=== PATIENT | male | born 1970 | race Caucasian/White ===

== ENCOUNTER 2021-10-11 07:19 | Outpatient (REF) | payer BC, SELFPAY ==
--- NOTE | ~2021-10-11 | XR_ITS ---
EXAMINATION: XR HAND, LEFT CLINICAL INFORMATION: Left hand pain COMPARISON: None TECHNIQUE: 3 views of the left hand FINDINGS: Normal mineralization. No periarticular osteopenia, erosions, or suspicious soft tissue calcifications. Normal alignment with no fracture. XR/XR hand wrist LT IMPRESSION: Normal left hand
[2021-10-11 11:42] LABS: Appearance Urine CLEAR; Color Urine YELLOW; Glucose Urine UA NEG (NEG); Leukocyte Esterase Urine NEG (NEG); Nitrite Urine NEG (NEG); PH 5.5 (5.0-8.0); Specific Gravity - Urine 1.025 (1.005-1.025); Urine Blood NEG (NEG); Urine Ketones NEG (NEG); Urine Protein NEG (NEG-TRACE)
[2021-10-11 11:47] LABS: Alanine Aminotransferase 19 U/L (0-40); Albumin Level 4.1 g/dL (3.5-5.0); Alkaline Phosphatase 53 U/L (39-117); Anion Gap 11 (12-20); Aspartate Amino Transferase 16 U/L (5-37); Bilirubin Total 0.6 mg/dL (0.0-1.0); Blood Urea Nitrogen 15 mg/dL (9-16); Calcium 8.8 mg/dL (8.4-10.2); Carbon Dioxide 24 mmol/L (22-29); Chloride 108 mmol/L (96-108); Cholesterol 215 mg/dL; Estimated Glomerular Filt Rate > 60; Glucose Fasting 90 mg/dL (60-99); HDL Cholesterol 62 mg/dL; LDL Cholesterol Calculated 129 mg/dl; Lipase 28 U/L (8-78); Potassium 4.2 mmol/L (3.3-5.1); Sodium 139 mmol/L (135-145); Total Protein 6.7 g/dL (6.5-8.0); Triglycerides 121 mg/dL
[2021-10-11 11:57] LABS: Prostate Specific Antigen Scr 0.78 ng/mL (<0.05-4.0); TSH reflex Free T4 1.36 uIU/mL (0.32-4.0)
== END 2021-10-11 07:20 | disposition home or self-care (01) ==
LOC: HO.HMGCLDS 07:19
PROVIDERS: PCP Nurse Practitioner Family; Visit Provider Nurse Practitioner Family
DX: Z00.00 Encounter for general adult medical examination without abnormal findings (principal); Z12.5 Encounter for screening for malignant neoplasm of prostate; R10.13 Epigastric pain; M79.642 Pain in left hand
CPT/HCPCS: 36415; 73110; 73130; 80053; 80061; 81003; 83690; 84153; 84443

== ENCOUNTER 2021-10-20 13:17 | Outpatient (REF) | payer BC, SELFPAY ==
--- NOTE | ~2021-10-20 | US_ITS ---
EXAMINATION: US ABDOMEN COMPLETE CLINICAL INFORMATION: Epigastric pain. COMPARISON: CT abdomen and pelvis 09/07/2016. TECHNIQUE: Real-time imaging of the abdominal viscera. FINDINGS: PANCREAS: Normal. ABDOMINAL AORTA: The proximal, mid, and distal segments are normal in caliber. INFERIOR VENA CAVA: Visualized portions are normal. LIVER: The liver is normal in size. The liver contour is normal. Liver echotexture is slightly increased. No focal hepatic lesion. There is no intrahepatic biliary duct dilatation seen. GALLBLADDER: Normal. The gallbladder is physiologically distended without evidence of stones, sludge, polyps, wall thickening or pericholecystic fluid. COMMON BILE DUCT: Normal in caliber measuring 0.4 cm in diameter. RIGHT KIDNEY: Normal. No hydronephrosis. No renal calculi or focal parenchymal lesions. The kidney measures 10.0 cm in maximum dimension. LEFT KIDNEY: Normal. No hydronephrosis. No renal calculi or focal parenchymal lesions. The kidney measures 10.2 cm in maximum dimension. SPLEEN: Normal. The spleen measures 10.4 cm in maximum dimension. FREE FLUID: None. US/US abdomen complete IMPRESSION: Slightly echogenic liver otherwise unremarkable exam
--- NOTE | ~2021-10-20 | US_ITS ---
EXAMINATION: ULTRASOUND EXTREMITY NONVASCULAR CLINICAL INFORMATION: Ganglion COMPARISON: None TECHNIQUE: Grayscale and color images of the soft tissues of the dorsal left wrist using a linear transducer FINDINGS: No cyst/ganglion is seen. No fluid collection or soft tissue mass is seen. US/US extremity nonvascular IMPRESSION: No abnormality seen by ultrasound.
== END 2021-10-20 13:18 | disposition home or self-care (01) ==
LOC: HO.HMGCX 13:17
PROVIDERS: PCP Nurse Practitioner Family; Visit Provider Nurse Practitioner Family
DX: R10.13 Epigastric pain (principal); M67.439 Ganglion, unspecified wrist
CPT/HCPCS: 76700; 76882

== ENCOUNTER 2022-04-12 08:45 | Outpatient (REF) | payer BC, SELFPAY ==
[2022-04-12 11:12] LABS: MANUAL DIFF FLAG NO
[2022-04-12 11:23] LABS: Appearance Urine CLEAR; Color Urine YELLOW; Glucose Urine UA NEG (NEG); Leukocyte Esterase Urine NEG (NEG); Nitrite Urine NEG (NEG); Urine Blood NEG (NEG); Urine Ketones 5 MG/DL (NEG); Urine Protein NEG (NEG-TRACE)
[2022-04-12 11:28] LABS: Basophils Percent Auto 0.6 % (0-2); Eosinophils Absolute Auto 0.1 X10*3/uL (0.0-0.4); Eosinophils Percent Auto 1.9 % (0-4); Hematocrit 43.8 % (42.0-52.0); Hemoglobin 14.5 g/dl (14.0-18.0); Imm Gran Abs Auto 0.01 X10*3/uL (0.00-0.03); Imm Gran Pct Auto 0.2 % (0.0-0.4); Lymphocytes Absolute Auto 1.7 X10*3/uL (1.2-4.9); Lymphocytes Percent Auto 36.6 % (20-40); Mean Corpuscular HGB Conc 33.1 g/dl (31.0-36.0); Mean Corpuscular Hemoglobin 31.4 pg (27.0-33.0); Mean Corpuscular Volume 94.8 fL (80.0-98.0); Mean Platelet Volume 10.5 fL (9.4-12.4); Monocytes Absolute Auto 0.4 X10*3/uL (0.1-1.2); Monocytes Percent Auto 8.2 % (2-11); Neutrophils Absolute Auto 2.5 x10*3/uL (2.0-8.3); Neutrophils Percent Auto 52.5 % (45-73); Platelet Count 283 X10*3/uL (160-400); Red Blood Count 4.62 X10*6/uL (4.60-5.80); Red Cell Distribution Width 12.9 % (11.0-16.0); White Blood Count 4.7 X10*3/uL (4.8-10.8)
[2022-04-12 11:46] LABS: Alanine Aminotransferase 16 U/L (0-40); Albumin Level 4.4 g/dL (3.5-5.0); Alkaline Phosphatase 53 U/L (39-117); Anion Gap 12 (12-20); Aspartate Amino Transferase 14 U/L (5-37); Bilirubin Total 0.7 mg/dL (0.0-1.0); Blood Urea Nitrogen 17 mg/dL (9-16); Calcium 9.7 mg/dL (8.4-10.2); Carbon Dioxide 25 mmol/L (22-29); Chloride 106 mmol/L (96-108); Cholesterol 212 mg/dL; Estimated Glomerular Filt Rate > 60; Glucose Fasting 95 mg/dL (60-99); HDL Cholesterol 55 mg/dL; LDL Cholesterol Calculated 140 mg/dl; Potassium 4.8 mmol/L (3.3-5.1); Sodium 138 mmol/L (135-145); Total Protein 7.1 g/dL (6.5-8.0); Triglycerides 85 mg/dL
[2022-04-12 12:09] LABS: TSH reflex Free T4 1.76 uIU/mL (0.32-4.0)
== END 2022-04-12 08:46 | disposition home or self-care (01) ==
LOC: HO.HMGCLDS 08:45
PROVIDERS: PCP Nurse Practitioner Family; Visit Provider Nurse Practitioner Family
DX: E78.5 Hyperlipidemia, unspecified (principal); I10 Essential (primary) hypertension
CPT/HCPCS: 36415; 80053; 80061; 81003; 84443; 85025

== ENCOUNTER 2023-10-19 06:41 | Outpatient (REF) | payer BC, SELFPAY ==
[2023-10-19 11:11] LABS: MANUAL DIFF FLAG NO
[2023-10-19 11:16] LABS: Basophils Percent Auto 0.8 % (0-2); Eosinophils Absolute Auto 0.1 X10*3/uL (0.0-0.4); Eosinophils Percent Auto 2.7 % (0-4); Hematocrit 44.3 % (42.0-52.0); Hemoglobin 14.6 g/dl (14.0-18.0); Imm Gran Abs Auto 0.03 X10*3/uL (0.00-0.03); Imm Gran Pct Auto 0.6 % (0.0-0.4); Lymphocytes Percent Auto 37.9 % (20-40); Mean Corpuscular Hemoglobin 30.9 pg (27.0-33.0); Mean Corpuscular Volume 93.7 fL (80.0-98.0); Mean Platelet Volume 10.2 fL (9.4-12.4); Monocytes Absolute Auto 0.4 X10*3/uL (0.1-1.2); Monocytes Percent Auto 8.5 % (2-11); Neutrophils Absolute Auto 2.6 x10*3/uL (2.0-8.3); Neutrophils Percent Auto 49.5 % (45-73); Platelet Count 282 X10*3/uL (160-400); Red Blood Count 4.73 X10*6/uL (4.60-5.80); Red Cell Distribution Width 12.5 % (11.0-16.0); White Blood Count 5.2 X10*3/uL (4.8-10.8)
[2023-10-19 11:20] LABS: Appearance Urine Clear; Color Urine Yellow; Glucose Urine UA Negative (Negative); Leukocyte Esterase Urine Negative (Negative); Nitrite Urine Negative (Negative); PH 5.5 (5.0-9.0); Specific Gravity - Urine 1.025 (1.005-1.025); UMIC TRIGGER UACC YES; Urine Blood Trace (Negative); Urine Ketones Trace mg/dL (Negative); Urine Protein Negative (Neg-Trace)
[2023-10-19 11:29] LABS: Bacteria Urine None Seen (None Seen); Hyaline Casts Urine 0-2 /LPF (0-2); RBC Urine 0-2 /HPF (0-2); Squamous Epithelial Cell Urine 0-2 /HPF (0-2); WBC Urine 0-5 /HPF (0-5)
[2023-10-19 11:39] LABS: Alanine Aminotransferase 23 U/L (0-40); Albumin Level 4.4 g/dL (3.5-5.0); Alkaline Phosphatase 57 U/L (39-117); Anion Gap 13 (12-20); Aspartate Amino Transferase 21 U/L (5-37); Bilirubin Total 0.5 mg/dL (0.0-1.0); Blood Urea Nitrogen 19 mg/dL (9-16); Calcium 9.5 mg/dL (8.4-10.2); Carbon Dioxide 21 mmol/L (22-29); Chloride 108 mmol/L (96-108); Cholesterol 174 mg/dL (<200); Estimated Glomerular Filt Rate > 60; Glucose Fasting 91 mg/dL (60-99); HDL Cholesterol 54 mg/dL (>40); LDL Cholesterol Calculated 103 mg/dL (<100); Potassium 4.2 mmol/L (3.3-5.1); Sodium 138 mmol/L (135-145); Total Protein 7.3 g/dL (6.5-8.0); Triglycerides 86 mg/dL (<150)
[2023-10-19 11:52] LABS: Prostate Specific Antigen Scr 1.25 ng/mL (<0.05-4.0)
[2023-10-19 11:56] LABS: TSH reflex Free T4 1.79 uIU/mL (0.32-4.0)
== END 2023-10-19 06:42 | disposition home or self-care (01) ==
LOC: HO.HMGCLDS 06:41
PROVIDERS: PCP Internal Medicine Medical Oncology; Visit Provider Nurse Practitioner Family
DX: Z00.00 Encounter for general adult medical examination without abnormal findings (principal); Z12.5 Encounter for screening for malignant neoplasm of prostate; I10 Essential (primary) hypertension
CPT/HCPCS: 36415; 80053; 80061; 81001; 84153; 84443; 85025

== ENCOUNTER 2024-05-28 13:17 | Outpatient (AMB) | payer BC, SELFPAY ==
--- NOTE | 2024-05-28 13:32 | A.OFFPC_ITS ---
Vital Signs 05/28/24 13:44 05/28/24 14:37 Weight 210 lb BP 140/100 H 138/94 H Blood Pressure Location Lt brachial Lt brachial Position Sitting Sitting Pulse 80 Pulse Source Pulse Oximeter Pulse Oximetry (%) 96 Oxygen Delivery Method Room Air Intake Visit Reasons: PE Intake Note: Patient here for physical exam. Colon: 2017 due 10 yrs from date. Allergies erythromycin base [From ERYTHROCIN] Adverse Reaction (Unknown, Verified 05/28/24 17:12) Unknown Medication List - Last Reconciled 05/28/24 by ANJLAI Thornton atorvastatin 10 mg PO BEDTIME cetirizine 10 mg PO DAILY PRN losartan-hydrochlorothiazide 50-12.5 mg 1 tab PO DAILY 90 days omeprazole 20 mg PO DAILY 90 days trazodone 50 mg PO BEDTIME PRN 90 days Tobacco use date assessed: 05/28/24 Dental Screening Dental Screen Date: 05/28/24 Did you have a dental visit in the last 12 months?: Yes Did you have a dental problem in the last 6 months where you did not have access to dental care?: No Was dental information given to patient?: Patient has dentist HPI PE HPI Details Pt is here for a PE. Will order labs. sees derm once a year. Colon screen is up to date. PSA is up to date. HTN: Pt's blood pressure is elevated today. He is taking losartan 25mg. Will stop this and start losartan- hydrochlorothiazide 50-12.5mg. Denies chest pain, shortness of breath, headache, dizziness, and blurred vision. Pt reports an episode of blood in his stool 4 months ago. He has a hx of anal fissures and hemorrhoids. Pt did not want a rectal exam today. Pt reports intermittent constipation. He does have a hx of diverticulosis. He will let me know if he develops blood in stool again. [facility] Social History Housing: House Patient Tobacco Use Status: Former Tobacco user Years Smoked: 20 years ago e-Cigarette/Vaping Use: Never Used Second Hand Smoke Exposure: No service: No Current occupational status: employed Current occupation: [employer] Current occupational exposures/hazards: No Cognitive needs: No Hearing needs: No Vision needs: Yes (contacts) Questionnaire PHQ-9 Over the last 2 weeks, how often have you been bothered by any of the following problems? 92254 - PHQ-9 Billing: Patient declined-do not bill Source: Developed by Drs. Quintin Valle, Zenaida Richmond, Gideon Leblanc and colleagues, with an educational giana from [employer]. Thrive Questionnaire Date Thrive assessed: 10/05/21 I am a: Patient What is your living situation today?: I have a steady place to live Within the past 12 months, did the food you bought not last and you didn't have the money to get more?: Never true Within the past 12 months, did you worry whether your food would run out before you got money to buy more?: Never true Do you have trouble paying for medicines?: No Do you have trouble getting transportation to medical appointments?: No Do you have trouble paying your heating and electricity bill?: No Do you have trouble taking care of your child, family member or friend?: No Do you have trouble with day-to-day activities such as bathing, preparing meals, shopping, managing finances, etc.?: No Are you currently unemployed and looking for a job?: No Are you interested in more education?: No Currently or been in a relationship where the following occur: No concerns reported THRIVE Score: 0 AUDIT C Alcohol Use Questionnaire (AUDIT-C) 1. How often do you have a drink containing alcohol?: 2-3 times a week 2. How many drinks containing alcohol do you have on a typical day when you are drinking?: 3 or 4 3. How often do you have six or more drinks on one occasion?: Less than monthly Total Score: 5 AARON-7 AMB Questionnaire AARON-7 Date AARON - 7 assessed: 10/05/21 Feeling nervous, anxious, or on edge: 0 = Not at all Not being able to stop or control worryin = Not at all Worrying too much about different things: 0 = Not at all Trouble relaxin = Not at all Being so restless that it is hard to sit still: 0 = Not at all Becoming easily annoyed or irritable: 0 = Not at all Feeling afraid as if something awful might happen: 0 = Not at all Total AARON-7 score (0-4 normal; 5-9 mild; 10-14 moderate; 15-21 severe): 0 Source: Developed by Drs. Quintin Valle, Zenaida Richmond, Gideon Leblanc and colleagues, with an educational giana from [employer]. Review of Systems Const Denies chills and Denies fever(s) Eyes Denies blurry vision ENT Denies vertigo, Denies dizziness and Denies sore throat Card Denies chest pain at rest, Denies chest pain with activity, Denies diaphoresis, Denies dyspnea and Denies dyspnea on exertion Resp Denies cough, Denies dyspnea, Denies dyspnea on exertion and Denies wheezing GI Denies abdominal pain, Denies melena, Reports hematochezia (4 months ago), Reports constipation, Denies diarrhea and Denies loose stools Denies hematuria Musc Denies numbness and Denies tingling Skin/Breast Denies lesions Neuro Denies vertigo, Denies dizziness, Denies numbness and Denies tingling Psych Denies anxiety, Denies depression, Denies homicidal ideation, Denies suicidal ideation and Denies other (substance abuse) Aller/Immun Denies wheezing Physical exam (Primary Care) Vital Signs: Last Vital Signs Pulse 80 05/28/24 13:44 BP 138/94 H 05/28/24 14:37 Pulse Ox 96 05/28/24 13:44 Oxygen Delivery Method Room Air 05/28/24 13:44 Tobacco/Smoking Status: Tobacco use Status Tobacco use date assessed 05/28/24 05/28/24 13:47 Patient Tobacco Use Status Former Tobacco user 05/28/24 13:33 e-Cigarette/Vaping Use Never Used 05/28/24 13:33 Thrive Assessment: Date of Thrive Assessment Date Thrive assessed 10/05/21 05/28/24 13:33 Currently or been in a relationship where the following occur: No concerns reported Const General: cooperative Nutritional Appearance: well nourished Orientation/consciousness: patient oriented x3 HENMT Head: Yes normal to inspection, Yes normocephalic and Yes atraumatic Ears: TM's normal bilaterally Eyes General: appearance normal, both eyes and all related structures Alignment and Position: alignment normal and position normal Neck Neck: Yes normal visual inspection and Yes no lymphadenopathy Thyroid: Thyroid normal Resp Effort & Inspection: normal respiratory effort Auscultation: clear to auscultation bilaterally Cardio Rate: regular rate Rhythm: regular rhythm Heart sounds: S1 normal heart sound present, S2 normal heart sound present and no murmurs GI Palpation (GI): Soft to palpation and nontender Auscultation: normal bowel sounds Male General Exam: Yes normal external exam Penis: normal penis Scrotum: scrotum normal, testes descended bilaterally and no inguinal hernias Testes: no testicular mass Skin Rashes: no rashes Neuro General: patient oriented x3, moves all extremities, no focal motor deficits and deep tendon reflexes 2+ bilaterally Romberg Test: Negative Psych Appearance: grossly normal Mental Status: mental status grossly normal Speech and movement: Normal speech and movement present Affect: normal affect Attitude: cooperative Thought process: Normal thought process present Thought content: Normal thought content present Insight: Good insight present (Psych) Judgement: Good judgement present (Psych) Assessment and Plan Assessment & Plan (1) Encounter for routine adult physical exam with abnormal findings: Code(s): Z00. - Encounter for general adult medical examination with abnormal findings Plan: Labs ordered (2) Screening PSA (prostate specific antigen): Code(s): Z12.5 - Encounter for screening for malignant neoplasm of prostate Plan: PSA ordered Plan The patient agreed to the use of a medical investigator for this encounter. Scribed for ANJALI Méndez by Jessica Chavarria medical investigator, on 05/28/2024 at 14:05 EST. Orders: Orders Complete Blood Count Auto Diff Today Z00. - Encounter for general adult medical examination with abnormal findings Comprehensive [place]. Panel Fast Today Z00. - Encounter for general adult medical examination with abnormal findings Lipid Panel Today Z00. - Encounter for general adult medical examination with abnormal findings TSH reflex Free T4 Today Z00.01 - Encounter for general adult medical examination with abnormal findings UA CC w/rflx Micro + Cult Today Z00. - Encounter for general adult medical examination with abnormal findings Prostate Specific Antigen Scr Today Z12.5 - Encounter for screening for malignant neoplasm of prostate Medications: New losartan-hydrochlorothiazide 50-12.5 mg 1 tab PO DAILY 90 tabs 0RF 90 days Discontinued losartan Discontinued Reason: Doctor's Order 25 mg PO DAILY 90 tabs 1RF Coding Level of Care Code Est Pt Prev Care 40-64y(68611) Diagnoses Encounter for routine adult physical exam with abnormal findings Z00.01 Screening PSA (prostate specific antigen) Z12.5
[2024-05-28 13:44] VITALS: BP 140/100; PULSE 80; O2SAT 96
[2024-05-28 14:37] VITALS: BP 138/94
== END 2024-05-28 15:20 | disposition home or self-care (01) ==
PROVIDERS: PCP Nurse Practitioner Family; Visit Provider Nurse Practitioner Family
DX: Z00.00 Encounter for general adult medical examination without abnormal findings (principal); Z12.5 Encounter for screening for malignant neoplasm of prostate
CPT/HCPCS: 99396

== ENCOUNTER 2024-06-10 07:08 | Outpatient (REF) | payer BC, SELFPAY ==
[2024-06-10 10:16] LABS: MANUAL DIFF FLAG NO
[2024-06-10 10:25] LABS: Basophils Percent Auto 0.6 % (0-2); Eosinophils Absolute Auto 0.1 X10*3/uL (0.0-0.4); Eosinophils Percent Auto 2.3 % (0-4); Hematocrit 43.7 % (42.0-52.0); Hemoglobin 15.2 g/dl (14.0-18.0); Imm Gran Abs Auto 0.04 X10*3/uL (0.00-0.03); Imm Gran Pct Auto 0.8 % (0.0-0.4); Lymphocytes Absolute Auto 1.9 X10*3/uL (1.2-4.9); Lymphocytes Percent Auto 35.9 % (20-40); Mean Corpuscular HGB Conc 34.8 g/dl (31.0-36.0); Mean Corpuscular Hemoglobin 32.9 pg (27.0-33.0); Mean Corpuscular Volume 94.6 fL (80.0-98.0); Mean Platelet Volume 10.2 fL (9.4-12.4); Monocytes Absolute Auto 0.4 X10*3/uL (0.1-1.2); Monocytes Percent Auto 8.5 % (2-11); Neutrophils Absolute Auto 2.7 x10*3/uL (2.0-8.3); Neutrophils Percent Auto 51.9 % (45-73); Platelet Count 306 X10*3/uL (160-400); Red Blood Count 4.62 X10*6/uL (4.60-5.80); Red Cell Distribution Width 12.9 % (11.0-16.0); White Blood Count 5.2 X10*3/uL (4.8-10.8)
[2024-06-10 11:05] LABS: Alanine Aminotransferase 17 U/L (0-40); Albumin Level 4.6 g/dL (3.5-5.0); Alkaline Phosphatase 52 U/L (39-117); Anion Gap 13 (12-20); Aspartate Amino Transferase 16 U/L (5-37); Bilirubin Total 0.7 mg/dL (0.0-1.0); Blood Urea Nitrogen 16 mg/dL (9-16); Carbon Dioxide 25 mmol/L (22-29); Chloride 103 mmol/L (96-108); Cholesterol 174 mg/dL (<200); Estimated Glomerular Filt Rate > 60; Glucose Fasting 96 mg/dL (60-99); HDL Cholesterol 60 mg/dL (>40); LDL Cholesterol Calculated 96 mg/dL (<100); Potassium 4.1 mmol/L (3.3-5.1); Sodium 137 mmol/L (135-145); Total Protein 7.3 g/dL (6.5-8.0); Triglycerides 94 mg/dL (<150)
[2024-06-10 11:13] LABS: Prostate Specific Antigen Scr 1.09 ng/mL (<0.05-4.0)
[2024-06-10 11:22] LABS: Appearance Urine Clear; Color Urine Yellow; Glucose Urine UA Negative (Negative); Leukocyte Esterase Urine Negative (Negative); Nitrite Urine Negative (Negative); TSH reflex Free T4 1.77 uIU/mL (0.32-4.0); Urine Blood Negative (Negative); Urine Ketones Negative (Negative); Urine Protein Negative (Neg-Trace)
== END 2024-06-10 07:09 | disposition home or self-care (01) ==
LOC: HO.HMGCLDS 07:08
PROVIDERS: PCP Nurse Practitioner Family; Visit Provider Nurse Practitioner Family
DX: Z00.01 Encounter for general adult medical examination with abnormal findings (principal); Z12.5 Encounter for screening for malignant neoplasm of prostate
CPT/HCPCS: 36415; 80053; 80061; 81003; 84153; 84443; 85025

== ENCOUNTER 2025-01-27 08:01 | Outpatient (AMB) | payer BC, SELFPAY ==
--- NOTE | 2025-01-27 08:19 | MHC.OFFWIV ---
Intake Vital Signs 01/27/25 08:24 Height 6 ft Weight 215 lb BMI 29.2 BP 140/90 H Blood Pressure Location Lt brachial Position Sitting Pulse 81 Pulse Source Pulse Oximeter Pulse Oximetry (%) 98 Oxygen Delivery Method Room Air Intake Visit Reasons: EP Chest congestion, cold symptoms Intake Note: Patient here for cough, chest congestion that has been present for about a week or so. Patient Tobacco Use Status: Former Tobacco user Allergies erythromycin base [From ERYTHROCIN] Adverse Reaction (Unknown, Verified 01/27/25 08:25) Unknown Do you need a note to return to daycare/school/sports/work: No HPI HPI Comments History of Present Illness Details Patient is a 54yo M who presents to office with cough/cold with chest congestion PCP Austen gave antibiotic last saturday for symptoms; sinusitis He said traveled to [facility] 5 days ago. While on plane he felt chest cold onset No phlegm + congestion intermittent dry cough He said breathing fine Former smoker. No hx asthma Trying OTC cough medicine without complete relief Augmentin helped sinuses; this am had a minimal amount of congestion He said ears fine No fever or chills + fatigue, no body aches PFSH Social History Housing: House Patient Tobacco Use Status: Former Tobacco user Years Smoked: 20 years ago e-Cigarette/Vaping Use: Never Used Second Hand Smoke Exposure: No service: No Current occupational status: employed Current occupation: [employer] Current occupational exposures/hazards: No Cognitive needs: No Hearing needs: No Vision needs: Yes (contacts) Review of Systems Const Denies body aches, Denies chills, Reports fatigue, Denies fever(s) and Denies headache(s) ENT Denies dizziness, Denies otalgia, Denies headache(s), Reports nasal congestion, Denies sinus pain, Denies sinus pressure, Reports sore throat and Denies throat swelling Card Denies chest pain, Denies dyspnea and Denies dyspnea on exertion Resp Denies change in phlegm color, Reports chest congestion, Reports cough, Denies hemoptysis, Denies dyspnea and Denies dyspnea on exertion GI Denies abdominal pain Musc Denies myalgias Neuro Denies dizziness and Denies headache(s) Endo Reports fatigue Aller/Immun Denies throat swelling Physical Exam Vital Signs: Last Vital Signs Pulse 81 01/27/25 08:24 BP 140/90 H 01/27/25 08:24 Pulse Ox 98 01/27/25 08:24 Oxygen Delivery Method Room Air 01/27/25 08:24 BMI result Body Mass Index 29.2 General: Non-toxic, NAD. Speaking full sentences. Skin: Warm dry throughout Eye: EOMI HENT: Airway patent. Uvula midline. No pharyngeal erythema or edema. No COMPREHENSIVE ADVISOR. No sinus ttp. No rhinorrhea Bilateral canals clear. TM non-erythematous, non-bulging. No TM perforation or hemotympanum noted. Respiratory: CTA bilaterally. No wheezes, rales or rhonchi Cardiac: RRR. No murmur Neurology: Alert. No aphasia or facial droop. Gait without abnormality Psych: Good mood and affect Assessment & Plan Assessment & Plan (1) Cough: Code(s): R05.9 - Cough, unspecified Qualifiers: Cough type: acute Qualified Code(s): R05.1 - Acute cough Plan: Patient seen and evaluated. Lungs CTA viral covid/flu/rsv obtained Tesalon for cough Increase fluids/rest Discussed s/s that warrant re-evaluation for concern PNA Patient gave verbal understanding and had no additional questions or concerns at time of discharge All questions answered Orders: Orders SARS-CoV2/FLU/RSV Today R05.9 - Cough, unspecified Medications: New benzonatate 200 mg PO BID-TID PRN 14 caps 0RF cough Coding Level of Care Code Est Pt Level 3 (76952) Diagnoses Acute cough R05.1 Cough type: acute
[2025-01-27 08:24] VITALS: BP 140/90; PULSE 81; O2SAT 98; BMI 29.2
== END 2025-01-27 08:50 | disposition home or self-care (01) ==
PROVIDERS: PCP Nurse Practitioner Family; Visit Provider Physician Assistant
DX: R05.1 Acute cough (principal)

== ENCOUNTER 2025-01-27 08:01 | Outpatient (REF) | payer BC, SELFPAY ==
[2025-01-27 12:09] LABS: Influenza A PCR NEGATIVE (Negative); Influenza B PCR NEGATIVE (Negative); Resp Syncy Virus RNA Qual PCR NEGATIVE (Negative); SARS COV2 PCR INHOUSE NEGATIVE (Negative)
== END 2025-01-27 08:02 | disposition home or self-care (01) ==
LOC: HO.LNP 08:01
PROVIDERS: PCP Nurse Practitioner Family; Visit Provider Physician Assistant
DX: R05.1 Acute cough (principal)
CPT/HCPCS: 0241U

== ENCOUNTER 2025-05-31 10:49 | Outpatient (AMB) | payer BC, SELFPAY ==
[2025-05-31 10:53] VITALS: BP 128/92; PULSE 63; RESP 16; TEMP 36.7; O2SAT 96; BMI 29.4
--- NOTE | 2025-05-31 10:53 | MHC.PC.OV ---
Vital Signs 05/31/25 10:53 05/31/25 11:34 Height 6 ft Weight 217 lb BMI 29.4 BP 128/92 H 122/84 Blood Pressure Location Lt brachial Lt brachial Position Sitting Sitting Respiration 16 Pulse 63 Pulse Source Pulse Oximeter Temp 98.0 F Temp Source Oral Pulse Oximetry (%) 96 Oxygen Delivery Method Room Air Intake Visit Reasons: PE Manager Sterile Processing Required: No Accompanied by: Self / Same As Patient Allergies erythromycin base (From ERYTHROCIN) Adverse Reaction (Unknown, Verified 05/31/25 10:54) Unknown Medication List - Last Reconciled 05/31/25 by Austen Gonzalez, SMOKING TOBACCO PACKING MACHINE HAND- atorvastatin 10 mg PO BEDTIME cetirizine 10 mg PO DAILY PRN losartan-hydrochlorothiazide 50-12.5 mg 1 tab PO DAILY 90 days omeprazole 20 mg PO DAILY 90 days trazodone 50 mg PO BEDTIME PRN 90 days Tobacco use date assessed: 05/31/25 Dental Screening Dental Screen Date: 05/31/25 Did you have a dental visit in the last 12 months?: Yes Did you have a dental problem in the last 6 months where you did not have access to dental care?: No Was dental information given to patient?: Patient has dentist HPI PE HPI Details History of Present Illness The patient is a 54-year-old male presenting for a physical exam. He denies experiencing any chest pain, dyspnea, hematochezia, constipation, diarrhea, or urinary issues. He also denies any suicidal or homicidal ideation. His colonoscopy is up to date, and he has been encouraged to get laboratory tests in the near future. The patient reports that his blood pressure readings at home are more stable, typically in the 120s/70s to 80s range. sees derm on a regular basis (has anti-fungal meds at home) Health Maintenance - Colonoscopy is up to date - Encouraged to get laboratory tests in the near future Social History Review of Systems - Cardiovascular: Denies chest pain - Respiratory: Denies dyspnea - Gastrointestinal: Denies hematochezia, constipation, diarrhea - Genitourinary: Denies urinary issues - Psychiatric: Denies suicidal ideation, denies homicidal ideation Physical Exam General: Cooperative, healthy appearing, comfortable, no acute distress and well developed Orientation: Patient oriented x3 Limitations: No limitations Head: Normal to inspection Ears: Hearing grossly normal bilaterally Nose: Normal external nose present Face and sinus: Normal facial exam Eyes: Appearance normal, both eyes and all related structures Neck: Normal visual inspection and Yes full ROM Respiratory: Normal respiratory effort and able to speak in complete sentences. Clear to auscultation bilaterally Cardiovascular: Regular rate and rhythm. Normal S1 and S2 GI: Normal to inspection. Soft to palpation and nontender : Testicles without masses/lesions and no hernias appreciated Skin: faint inguinal rash (tinea) Neuro: Patient oriented x3 Extremities: Normal to inspection Results Plan The patient will continue to monitor his blood pressure at home, as it is more stable there compared to the clinic readings. He is encouraged to undergo laboratory testing in the near future to ensure comprehensive health monitoring. Patient Instructions - Continue monitoring blood pressure at home. - Schedule and complete laboratory tests soon. [facility] Social History Housing: House Patient Tobacco Use Status: Former Tobacco user Years Smoked: 20 years ago e-Cigarette/Vaping Use: Never Used Second Hand Smoke Exposure: No service: No Current occupational status: employed Current occupation: [employer] Current occupational exposures/hazards: No Cognitive needs: No Hearing needs: No Vision needs: Yes (contacts) Questionnaire PHQ-9 Over the last 2 weeks, how often have you been bothered by any of the following problems? 1. Little interest or pleasure in doing things: not at all 2. Feeling down, depressed, or hopeless: not at all 3. Trouble falling or staying asleep, or sleeping too much: not at all 4. Feeling tired or having little energy: not at all 5. Poor appetite or overeating: not at all 6. Feeling bad about yourself - or that you are a failure or have let yourself or your family down: not at all 7. Trouble concentrating on things, such as reading the newspaper or watching television: not at all 8. Moving or speaking so slowly that other people could have noticed. Or the opposite - being so fidgety or restless that you have been moving around a lot more than usual: not at all 9. Thoughts that you would be better off or of hurting yourself in some way: not at all Total score: 0 Depression Screening Interpretation: Negative Depression Screening Done: Yes 14385 - PHQ-9 Billing: Yes Source: Developed by Drs. Quintin Valle, Zenaida Richmond, Gideon Leblanc and colleagues, with an educational giana from [employer]. Thrive Questionnaire Date Thrive assessed: 05/27/25 I am a: Patient What is your living situation today?: I have a steady place to live Within the past 12 months, did the food you bought not last and you didn't have the money to get more?: Never true Within the past 12 months, did you worry whether your food would run out before you got money to buy more?: Never true Do you have trouble paying for medicines?: No Do you have trouble getting transportation to medical appointments?: No Do you have trouble paying your heating and electricity bill?: No Do you have trouble taking care of your child, family member or friend?: No Do you have trouble with day-to-day activities such as bathing, preparing meals, shopping, managing finances, etc.?: No Are you currently unemployed and looking for a job?: Yes Are you interested in more education?: No Please select the resources that you would like help with: None Currently or been in a relationship where the following occur: No concerns reported THRIVE Score: 0 AUDIT C Alcohol Use Questionnaire (AUDIT-C) 1. How often do you have a drink containing alcohol?: 2-3 times a week 2. How many drinks containing alcohol do you have on a typical day when you are drinking?: 3 or 4 3. How often do you have six or more drinks on one occasion?: Less than monthly Total Score: 5 Score Reviewed/Action Taken: Yes AARON-7 AMB Questionnaire AARON-7 Date AARON - 7 assessed: 05/31/25 Feeling nervous, anxious, or on edge: 0 = Not at all Not being able to stop or control worryin = Not at all Worrying too much about different things: 0 = Not at all Trouble relaxin = Not at all Being so restless that it is hard to sit still: 0 = Not at all Becoming easily annoyed or irritable: 0 = Not at all Feeling afraid as if something awful might happen: 0 = Not at all Total AARON-7 score (0-4 normal; 5-9 mild; 10-14 moderate; 15-21 severe): 0 Source: Developed by Drs. Quintin Valle, Zenaida Richmond, Gideon Leblanc and colleagues, with an educational giana from [employer]. AARON-7 Assessment Billing AARON-7 Assessment Tool: AARON-7 Assessment 71388 Physical exam (Primary Care) Vital Signs: Last Vital Signs Temp 98.0 F 05/31/25 10:53 Pulse 63 05/31/25 10:53 Resp 16 05/31/25 10:53 BP 128/92 H 05/31/25 10:53 Pulse Ox 96 05/31/25 10:53 Oxygen Delivery Method Room Air 05/31/25 10:53 BMI result Body Mass Index 29.4 Tobacco/Smoking Status: Tobacco use Status Tobacco use date assessed 05/31/25 05/31/25 10:57 Patient Tobacco Use Status Former Tobacco user 05/31/25 10:57 e-Cigarette/Vaping Use Never Used 05/31/25 10:57 PHQ-9: PHQ-9 Score PHQ-9: Total score 0 05/31/25 11:21 Depression Screening Interpretation: Negative Thrive Assessment: Date of Thrive Assessment Date Thrive assessed 05/27/25 05/31/25 10:57 Currently or been in a relationship where the following occur: No concerns reported Coding Level of Care Code Est Pt Prev Care 40-64y(26794) Diagnoses Physical exam Z00. Screening PSA (prostate specific antigen) Z12.5 Additional Codes AARON-7 Assessment Billing - AARON-7 Assessment Tool: AARON-7 Assessment 81871 ([id number]) PHQ-9 - 84399 - PHQ-9 Billing: Yes ([id number]) Assessment & Plan Assessment & Plan (1) Physical exam: Code(s): Z00.00 - Encounter for general adult medical examination without abnormal findings Category: Medical (2) Screening PSA (prostate specific antigen): Code(s): Z12.5 - Encounter for screening for malignant neoplasm of prostate Category: Medical Plan . Orders: Orders UA CC w/rflx Micro + Cult Today Z00.00 - Encounter for general adult medical examination without abnormal findings Complete Blood Count Auto Diff Today Z00.00 - Encounter for general adult medical examination without abnormal findings Comprehensive [place]. Panel Fast Today Z00.00 - Encounter for general adult medical examination without abnormal findings TSH reflex Free T4 Today Z00.00 - Encounter for general adult medical examination without abnormal findings Lipid Panel Today Z00.00 - Encounter for general adult medical examination without abnormal findings Prostate Specific Antigen Scr Today Z12.5 - Encounter for screening for malignant neoplasm of prostate
[2025-05-31 11:34] VITALS: BP 122/84
== END 2025-05-31 11:37 | disposition home or self-care (01) ==
LOC: HO.HMCC 10:50
PROVIDERS: PCP Nurse Practitioner Family; Visit Provider Nurse Practitioner Family
DX: Z00.00 Encounter for general adult medical examination without abnormal findings (principal); Z12.5 Encounter for screening for malignant neoplasm of prostate

== ENCOUNTER → 2025-05-31 10:49 | Outpatient (BNVA) | payer BC, SELFPAY | PROVIDERS: PCP Nurse Practitioner Family; Visit Provider Nurse Practitioner Family | DX: Z00.00 Encounter for general adult medical examination without abnormal findings (principal); Z13.31 Encounter for screening for depression; Z13.39 Encounter for screening examination for other mental health and behavioral disorders | CPT/HCPCS: 96127 ==

== ENCOUNTER 2025-07-05 06:39 | Outpatient (REF) | payer BC, SELFPAY ==
[2025-07-05 09:58] LABS: MANUAL DIFF FLAG NO
[2025-07-05 10:01] LABS: Appearance Urine Clear; Glucose Urine UA Negative (Negative); PH 5.5 (5.0-9.0); Specific Gravity - Urine 1.025 (1.005-1.025)
[2025-07-05 10:03] LABS: Hematocrit 42.1 % (42.0-52.0); Hemoglobin 14.4 g/dl (14.0-18.0); Imm Gran Abs Auto 0.02 X10*3/uL (0.00-0.03); Imm Gran Pct Auto 0.3 % (0.0-0.4); Lymphocytes Absolute Auto 1.9 X10*3/uL (1.2-4.9); Mean Corpuscular HGB Conc 34.2 g/dl (31.0-36.0); Mean Corpuscular Hemoglobin 32.1 pg (27.0-33.0); Mean Corpuscular Volume 94.0 fL (80.0-98.0); NRBC Abs Auto 0.000 X10*3/uL (0.0-0.012); NRBC Pct Auto 0.0 /100WBC (0.0-0.2); Platelet Count 286 X10*3/uL (160-400); Red Blood Count 4.48 X10*6/uL (4.60-5.80); White Blood Count 5.8 X10*3/uL (4.8-10.8)
[2025-07-05 10:54] LABS: Alanine Aminotransferase 22 U/L (0-40); Albumin Level 4.6 g/dL (3.5-5.0); Alkaline Phosphatase 56 U/L (39-117); Anion Gap 13 (12-20); Aspartate Amino Transferase 28 U/L (5-37); Blood Urea Nitrogen 21 mg/dL (9-16); Calcium 9.4 mg/dL (8.4-10.2); Carbon Dioxide 23 mmol/L (22-29); Chloride 109 mmol/L (96-108); Cholesterol 173 mg/dL (<200); Estimated Glomerular Filt Rate > 60; HDL Cholesterol 61 mg/dL (>40); Potassium 4.3 mmol/L (3.3-5.1); Sodium 141 mmol/L (135-145); Total Protein 7.0 g/dL (6.5-8.0); Triglycerides 95 mg/dL (<150)
== END 2025-07-05 06:40 | disposition home or self-care (01) ==
LOC: HO.HMGCLDS 06:39
PROVIDERS: PCP Nurse Practitioner Family; Visit Provider Nurse Practitioner Family
DX: Z00.00 Encounter for general adult medical examination without abnormal findings (principal); Z12.5 Encounter for screening for malignant neoplasm of prostate; Z13.6 Encounter for screening for cardiovascular disorders
CPT/HCPCS: 36415; 80053; 80061; 81003; 84153; 84443; 85025